=== PATIENT | male | born 1985 | race Caucasian/White ===

== ENCOUNTER 2021-05-24 19:46 | Emergency (ER) | payer OTHER, SELFPAY ==
[2021-05-24 19:50] VITALS: BP 124/90; PULSE 88; RESP 19; TEMP 37.1; O2SAT 98; BMI 48.8
--- NOTE | 2021-05-24 20:23 | HMH.EDUTC ---
[facility] [place] Disposition Clinical Impression: Gout attack Qualifiers: Gout site: unspecified site Gout etiology: unspecified cause Qualified Code(s): M10.9 - Gout, unspecified Disposition: Home, Self-Care Condition on Discharge: Good Instructions: Gout, DI for Gout, Colchicine Additional Instructions: Take medication as prescribed Follow up with your Family Doctor if no improvement or any worsening of symptoms Straight to ER if any life threatening symptoms Return if needed Prescriptions: Colchicine [Colcrys 0.6mg tablet] 0.6 mg PO DIRECTED #6 tab Prescription Printed Referrals: Michael Del Rio [Primary Care Provider] - Forms: Work/School Release Medical Decision Making - Danny Inquiry Pt receiving controlled substance: No Danny was queried for this patient: No Vital Signs: 05/24/21 19:50 05/24/21 20:39 Temperature 98.7 F 98.7 F Temperature Source Oral Pulse Rate 88 Pulse Rate [Right Brachial] 88 Respiratory Rate 19 19 Blood Pressure 124/90 Blood Pressure [Right Arm] 124/90 Blood Pressure Mean [Right Arm] 101 Blood Pressure Source [Right Arm] Automatic Cuff Blood Pressure Position [Right Arm] Sitting 02 Sat by Pulse Oximetry 98 Oxygen Delivery Method Room Air - Lab Data Lab results reviewed: Yes: I reviewed the patient's lab results. Lab Results 05/24/21 20:08: Uric Acid 8.3 Orders (Tests/Meds): ED MEDICATIONS Discontinued Medications Generic Name Dose Route Start Last Admin Trade Name Hodan PRN Reason Stop Dose Admin Ketorolac Tromethamine 60 mg 05/24/21 20:31 05/24/21 20:35 Ketorolac 60mg/2ml Vial IM 05/24/21 20:32 60 mg ONCE ONE Administration [facility] [place] HPI - General Stated complaint: Left foot pain Time Seen by Provider: 05/24/21 20:23 Mode of Arrival: Ambulatory Source of Information: Patient Limitations: No Limitations Description of Symptoms (Recalled from Triage Doc. by RN): PATIENT C/O LEFT FOOT PAIN X 3 DAYS, POSSIBLE GOUT FLARE-UP HEENT Symptoms (Recalled from RN notes): No Resp Symptoms (Recalled from RN notes): No Skin Symptoms (Recalled from RN notes): No MS Symptoms (Recalled from RN notes): Yes Functional Status (Recalled from RN notes): WNL - History of Present Illness Provider Complaint: Patient states that he has a history of gout States that he has been having pain, redness and swelling for the last 3 days in his left great toe States that he seen PCP and they started him on prednisone while he waited for his Uric acid result but hasnt heard anything and no improvement in the pain or swelling States that tonight he was unable to go to work due to the pain so he came in to get it checked out - Related Data Home Medications Medication Instructions Recorded Confirmed allopurinoL [Allopurinol 100mg 100 mg PO DAILY 05/24/21 05/24/21 tablet] predniSONE [Deltasone 10mg 10 mg PO BID 05/24/21 05/24/21 tablet] Previous Rx's Medication Instructions Recorded Colchicine [Colcrys 0.6mg tablet] 0.6 mg PO DIRECTED #6 tab 05/24/21 Allergies Allergy/AdvReac Type Severity Reaction Status Date / Time No Known Allergies Allergy Verified 05/24/21 20:14 - Worker's Comp Is this a Worker's Comp case?: No [facility] History - Hepatitis A Screen Drug use history?: No High risk sexual behaviors?: No History of sexually transmitted infection?: No Currently employed?: No Childcare worker?: No Do you have indoor plumbing?: Yes Do you have electricity?: Yes Attestation statement:: This patient has been screened for Hepatitis A risk factors. I have reviewed the patient's past medical history: Yes ROS Obtained: Yes All systems reviewed & no additional complaints, Yes Systems reviewed as appropriate & no additional complaints - Constitutional Constitutional: Reports system reviewed and no additional complaints, except as docu, Denies body ache, Denies chills, Denies fever(s) - Cardiovascular Cardiovascular: Reports system
[2021-05-24 20:25] LABS: Uric Acid 8.3 mg/dl (3.5-8.5)
[2021-05-24 20:39] VITALS: BP 124/90; PULSE 88; RESP 19; TEMP 37.1; O2SAT 98
== END 2021-05-24 20:50 | disposition home or self-care (01) ==
PROVIDERS: Emergency Provider Nurse Practitioner; PCP Family Medicine
DX: M10.072 Idiopathic gout, left ankle and foot (principal)
CPT/HCPCS: 84550; 96372; 99213; G0463